=== PATIENT | female | born 1995 | race Caucasian/White ===

== ENCOUNTER 2018-12-26 19:34 | Emergency (ER) | payer BC ==
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
[2018-12-26 20:20] LABS: CHLORIDE,CL 105 mmol/L (98-107); SODIUM,NA 140 mmol/L (136-145)
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
== END 2018-12-26 21:17 | disposition home or self-care (01) ==
LOC: MW.ED 19:34
DX: M62.830 Muscle spasm of back (principal); V49.9XXA Car occupant (driver) (passenger) injured in unspecified traffic accident, initial encounter
CPT/HCPCS: 36415; 70450; 70450-26; 71045; 71045-26; 72125; 72125-26; 80048; 81003; 81025; 85025; 99284; 99284-25

== ENCOUNTER 2021-05-06 06:23 | Inpatient (IN) | payer MEDICAID ==
[2021-05-06] MEDS ORDERED: Sodium Chloride 0.9% 10 ML SDV IV PRN (07:36)
[2021-05-06] MEDS ORDERED: Carboprost Tromethamine 250 MCG/1 ML Amp IM PRN (07:36)
[2021-05-06] MEDS ORDERED: Lidocaine 1% 50 ML MDV INJECT PRN (07:36)
[2021-05-06] MEDS ORDERED: Methylergonovine 0.2 MG/1 ML Amp IM PRN (07:36)
[2021-05-06] MEDS ORDERED: Water For Irrigation,Sterile 1,000 ML Container IRR PRN (07:36)
[2021-05-06] MEDS ORDERED: Tranexamic Acid 1,000 MG in Sodium Chloride 0.9% 100 ML IV PRN (07:36)
[2021-05-06] MEDS ORDERED: Sodium Chloride 0.9% 10 ML Syringe FLUSH PRN (07:36)
[2021-05-06] MEDS ORDERED: Nalbuphine 10 MG/1 ML Vial IVPUSH PRN (07:36)
[2021-05-06] MEDS ORDERED: Sodium Chloride 0.9% 2.5 ML Syringe FLUSH PRN (07:36)
[2021-05-06] MEDS ORDERED: Ondansetron 4 MG/2 ML SDV IVPUSH PRN (07:36)
[2021-05-06] MEDS ORDERED: Misoprostol 200 MCG Tab PO PRN (07:36)
[2021-05-06] MEDS ORDERED: Terbutaline 1 MG/ML SDV SUBCUT PRN (07:44)
[2021-05-06] MEDS ORDERED: Misoprostol 25 MCG (1/4 of 100 MCG) Tab VAG PRN ×2 (07:44→12:00)
[2021-05-06] MEDS ORDERED: Oxytocin/0.9 % Sodium Chloride 30 UNIT/500 ML BAG IV SCH ×2 (07:45)
[2021-05-06] MEDS: Misoprostol 25 MCG (1/4 of 100 MCG) Tab PO SCH ×2 (08:09→14:54)
[2021-05-06] MEDS: Lactated Ringers 1,000 ML IV SCH ×2 (12:34→13:43)
[2021-05-06] MEDS ORDERED: Ropivacaine HCl/PF 200 ML ONE (13:16)
[2021-05-06] MEDS ORDERED: Bupivacaine 0.25% 10 ML SDV ONE (13:17)
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
--- NOTE | 2021-05-06 22:26 | PCM.LDHP ---
L&D History of Present Illness - General Date of Service: 05/06/21 (LATE ENTRY) Admit Problem/Dx: Patient Status Order with Admit Dx/Problem 05/06/21 06:20 Patient Status [ADT] Routine Admission Diagnosis/Problem Admission Diagnosis/Problem Source of Information: Patient History Limitations: Reports: No Limitations - History of Present Illness Introduction:: 25yo at 39w [place] admitted for IOL. uncomplicated. She is A+, abs screen neg, RI, HepBsAg neg, HIV neg, RPR NR, GC/Chlam neg, GBS n eg. 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: Hematologic History: Reports: Anesthesia Reaction Other Hematologic History: 2016 possible reaction to epidural.Hives, chills, and fever of 104F - Past Surgical History Female Surgical History: Reports: Other (See Below) Other Female Surgeries/Procedures: Laparoscopic of ovarian cyst Jun 2010 Social & Family History - Family History Family Medical History: No Pertinent Family History OBGYN: Reports: - Tobacco Use Tobacco Use Status *Q: Never Tobacco User Second Hand Smoke Exposure: No - Caffeine Use Caffeine Use: Reports: Coffee Other Caffeine Use: 1-2 cups of coffee a day - Recreational Drug Use Recreational Drug Use: No H&P Review of Systems - Review of Systems: Review Of Systems: See Below General: Reports: No Symptoms HEENT: Reports: No Symptoms Pulmonary: Reports: No Symptoms Cardiovascular: Reports: No Symptoms Gastrointestinal: Reports: No Symptoms Genitourinary: Reports: No Symptoms Musculoskeletal: Reports: No Symptoms Skin: Reports: No Symptoms Psychiatric: Reports: No Symptoms Neurological: Reports: No Symptoms Hematologic/Lymphatic: Reports: No Symptoms Immunologic: Reports: No Symptoms L&D Exam - Exam Exam: See Below - Vital Signs Weight: 78.018 kg - OB Specific Contraction Intensity: Mild Movement: Active Heart Tones: Present Presentation: Vertex Estimated Weight: 7.5lbs - Retana Score Retana Score Cervix Position: Midposition Retana Score Consistency: Medium Retana Score Effacement: 0-30% Retana Score Dilation: 1-2 cm Retana Score Infant's Station: -3 Retana Score Total: 3 - Exam General: Alert, Oriented Lungs: Normal Respiratory Effort Cardiovascular: Regular Rate Back Exam: Normal Inspection Extremities: Normal Inspection - Patient Data Lab Results Last 24 hrs: Laboratory Results - last 24 hr 05/06/21 05/06/21 Range/Units 07:05 07:05 WBC 11.23 H (4.0-11.0) K/uL RBC 3.94 L (4.30-5.90) M/uL Hgb 11.5 L (12.0-16.0) g/dL Hct 34.7 L (36.0-46.0) % MCV 88.1 (80.0-98.0) fL MCH 29.2 (27.0-32.0) pg MCHC 33.1 (31.0-37.0) g/dL RDW Std Deviation 44.6 (28.0-62.0) fl RDW Coeff of Avni 14 (11.0-15.0) % Plt Count 186 (150-400) K/uL MPV 12.30 H (7.40-12.00) fL Nucleated RBC % 0.0 /100WBC Nucleated RBCs # 0 K/uL Blood Type A POSITIVE Antibody Screen NEGATIVE Result Diagrams: 05/07/21 05:43 - Problem List (1) Encounter for induction of labor SNOMED Code(s): 884798358 ICD Code: Z34.90 - ENCNTR FOR SUPRVSN OF NORMAL , UNSP, UNSP TRIMESTER Status: Acute Current Visit: Yes (2) Term SNOMED Code(s): 42922726 ICD Code: Z34.90 - ENCNTR FOR SUPRVSN OF NORMAL , UNSP, UNSP TRIMESTER Status: Acute Current Visit: Yes Problem List Initiated/Reviewed/Updated: Yes Orders Last 24hrs: Active Orders 24 hr Category Date Time Status Patient Status [ADT] Routine ADT 05/06/21 06:20 Active Bedrest Bathroom Privileges [RC] ASDIRECTED Care 05/06/21 07:44 Active Communication Order [RC] ASDIRECTED Care 05/06/21 07:44 Active Communication Order [RC] ASDIRECTED Care 05/06/21 07:44 Active Communication Order [RC] ASDIRECTED Care 05/06/21 07:44 Active Heart Tones [RC] CONTINUOUS Care 05/06/21 07:36 Active May Shower [RC] ASDIRECTED Care 05/06/21 07:36 Active Notify Provider [RC] PRN Care 05/06/21 07:36 Active Notify Provider [RC] PRN Care 05/06/21 07:44 Active Notify Provider [RC] PRN Care 05/06/21 07:44 Active Notify Provider [RC] STAT Care 05/06/21 07:44 Active Oxygen Therapy [RC] ASDIRECTED Care 05/06/21 07:44 Active Up ad Trina [RC] ASDIRECTED Care 05/06/21 07:36 Active Vaginal Exam [RC] PRN Care 05/06/21 07:36 Active Vaginal Exam [RC] PRN Care 05/06/21 07:44 Active Vital Signs [RC] PER UNIT ROUTINE Care 05/06/21 07:36 Active Vital Signs [RC] PER UNIT ROUTINE Care 05/06/21 07:44 Active Regular Diet [DIET] Diet 05/06/21 Breakfast Active RPR (SYPHILIS SERO) W/ RFLX [REF] Routine Lab 05/06/21 07:05 Received Carboprost Tromethamine [Hemabate DS] Med 05/06/21 07:36 Active 250 mcg IM ASDIRECTED PRN Lactated Ringers [Ringers, Lactated] 1,000 ml Med 05/06/21 07:45 Active IV ASDIRECTED Lidocaine 1% [Xylocaine 1%] Med 05/06/21 07:36 Active 50 ml INJECT ONETIME PRN Methylergonovine [Methergine] Med 05/06/21 07:36 Active 0.2 mg IM ASDIRECTED PRN Nalbuphine [Nubain] Med 05/06/21 07:36 Active 10 mg IVPUSH Q1H PRN Ondansetron [Zofran] Med 05/06/21 07:36 Active 4 mg IVPUSH Q6H PRN Oxytocin/0.9 % Sodium Chloride [Oxytocin 30 Unit/500 ML Med 05/06/21 07:45 Active -NS] 30 unit in 500 ml IV TITRATE Oxytocin/0.9 % Sodium Chloride [Oxytocin 30 Unit/500 ML Med 05/06/21 07:45 Active -NS] 30 unit in 500 ml IV TITRATE Sodium Chloride 0.9% [Normal Saline] Med 05/06/21 07:36 Active 10 ml IV ASDIRECTED PRN Sodium Chloride 0.9% [Saline Flush] Med 05/06/21 07:36 Active 10 ml FLUSH ASDIRECTED PRN Sodium Chloride 0.9% [Saline Flush] Med 05/06/21 07:36 Active 2.5 ml FLUSH ASDIRECTED PRN Terbutaline [Brethine] Med 05/06/21 07:44 Active 0.25 mg SUBCUT ASDIRECTED PRN Tranexamic Acid [Cyklokapron] 1,000 mg Med 05/06/21 07:36 Active Sodium Chloride 0.9% [Normal Saline] 100 ml IV ONETIME Water For Irrigation,Sterile [Sterile Water for Med 05/06/21 07:36 Active Irrigation] 1,000 ml IRR ASDIRECTED PRN miSOPROStoL [Cytotec] Med 05/06/21 07:36 Active 200 mcg PO ONETIME PRN miSOPROStoL [Cytotec] Med 05/06/21 08:00 Active 25 mcg PO Q4H miSOPROStoL [Cytotec] Med 05/06/21 07:44 Active 25 mcg VAG ONETIME PRN miSOPROStoL [Cytotec] Med 05/06/21 12:00 Active 25 mcg VAG Q4H PRN Scalp Electrode [WOMSER] Per Unit Routine Oth 05/06/21 07:36 Ordered Medication Administration Instruction [OM.PC] Q3H Oth 05/06/21 07:45 Ordered Peripheral IV Insertion Adult [OM.PC] Routine Oth 05/06/21 07:36 Ordered Resuscitation Status Routine Resus Stat 05/06/21 07:36 Ordered Medication Orders Carboprost Tromethamine (Carboprost Tromethamine 250 Mcg/1 Ml Amp) 250 mcg IM ASDIRECTED PRN PRN Reason: Post Hemorrhage Oxytocin/Sodium Chloride (Oxytocin 30 Unit/500 Ml-Ns) 30 unit in 500 mls @ 999 mls/hr IV TITRATE NATHAN Tranexamic Acid 1,000 mg/ (Sodium Chloride) 110 mls @ 660 mls/hr IV ONETIME PRN PRN Reason: Bleeding Lactated Ringer's (Ringers, Lactated) 1,000 mls @ 150 mls/hr IV ASDIRECTED [facility] Last Admin: 05/06/21 13:43 Dose: 999 mls/hr Documented by: Infusion: 05/06/21 13:35 Dose: 999 mls/hr Documented by: Admin: 05/06/21 12:34 Dose: 999 mls/hr Documented by: KAROL Oxytocin/Sodium Chloride (Oxytocin 30 Unit/500 Ml-Ns) 30 unit in 500 mls @ 2 mls/hr IV TITRATE NATHAN; Protocol Last Titration: 05/06/21 20:00 Dose: 6 munits/min, 6 mls/hr Documented by: Titration: 05/06/21 17:10 Dose: 4 munits/min, 4 mls/hr Documented by: Admin: 05/06/21 15:02 Dose: 2 munits/min, 2 mls/hr Documented by: KAROL Lidocaine HCl (Lidocaine 1% 50 Ml Mdv) 50 ml INJECT ONETIME PRN PRN Reason: Laceration repair Methylergonovine Maleate (Methylergonovine 0.2 Mg/1 Ml Amp) 0.2 mg IM ASDIRECT ED PRN PRN Reason: Post Hemorrhage Misoprostol (Misoprostol 200 Mcg Tab) 200 mcg PO ONETIME PRN PRN Reason: Post Hemorrhage Misoprostol (Misoprostol 25 Mcg (1/4 Of 100 Mcg) Tab) 25 mcg VAG ONETIME PRN PRN Reason: Cervical Ripening Last Admin: 05/06/21 08:09 Dose: 25 mcg Documented by: KAROL Misoprostol (Misoprostol 25 Mcg (1/4 Of 100 Mcg) Tab) 25 mcg VAG Q4H PRN PRN Reason: Cervical Ripening Misoprostol (Misoprostol 25 Mcg (1/4 Of 100 Mcg) Tab) 25 mcg PO Q4H [facility] Last Admin: 05/06/21 14:54 Dose: Not Given Documented by: Admin: 05/06/21 08:09 Dose: 25 mcg Documented by: KAROL Nalbuphine HCl (Nalbuphine 10 Mg/1 Ml Vial) 10 mg IVPUSH Q1H PRN PRN Reason: Pain (severe 7-10) Ondansetron HCl (Ondansetron 4 Mg/2 Ml Sdv) 4 mg IVPUSH Q6H PRN PRN Reason: Nausea/Vomiting Last Admin: 05/06/21 19:41 Dose: 4 mg Documented by: SUNDAR Sodium Chloride (Sodium Chloride 0.9% 10 Ml Syringe) 10 ml FLUSH ASDIRECTED PRN PRN Reason: Keep Vein Open Sodium Chloride (Sodium Chloride 0.9% 2.5 Ml Syringe) 2.5 ml FLUSH ASDIRECTED PRN PRN Reason: Keep Vein Open Sodium Chloride (Sodium Chloride 0.9% 10 Ml Sdv) 10 ml IV ASDIRECTED PRN PRN Reason: IV Use Sterile Water (Water For Irrigation,Sterile 1,000 Ml Container) 1,000 ml IRR ASDIRECTED PRN PRN Reason: delivery Terbutaline Sulfate (Terbutaline 1 Mg/Ml Sdv) 0.25 mg SUBCUT ASDIRECTED PRN PRN Reason: Tacysystole Assessment/Plan Comment:: 25yo at 39w admitted for elective IOL. Reactive strip. Retana score of 3. Discussed IOL procedure, including off label use of cytotec for cervical ripening. Patient express understanding and agreeable to the plan. Will start cervical ripening using cytotec, then pitocin PRN. Epidural PRN.
[2021-05-06] MEDS ORDERED: Lanolin 100% Cream 7 GM Tube TOP PRN (22:36)
[2021-05-06] MEDS ORDERED: Witch Hazel Medicated Pads 40/Jar TOP PRN (22:36)
[2021-05-06] MEDS ORDERED: Acetaminophen 500 MG Tab PO PRN ×2 (22:36)
[2021-05-06] MEDS ORDERED: Ibuprofen 400 MG Tab PO PRN (22:36)
[2021-05-06] MEDS ORDERED: Bisacodyl 10 MG Supp RECTAL PRN (22:36)
[2021-05-06] MEDS ORDERED: Docusate Sodium 100 MG Cap PO PRN (22:36)
[2021-05-06] MEDS ORDERED: Benzocaine/Menthol 20%-0.5% Spray 78 GM Cannister TOP PRN (22:36)
--- NOTE | 2021-05-06 22:36 | PCM.DEL ---
L & D Note - General Info Date of Service: 05/06/21 Mother's Due Date: 05/13/21 - Delivery Note Labor: Augmented by Oxytocin Cervical Ripening Method: Misoprostil Delivery Outcome: Livebirth Delivery Method: Spontaneous Vaginal Delivery-Single Presentation: Vertex Nuchal Cord: None Anesthesia Type: Epidural Episiotomy Type: None Laceration: None Placenta: Intact, Spontaneous Cord: 3 Vessels Estimated Blood Loss: 350 Resuscitation Needed: No : Stimulated, Warmed Score 1 min: 8 Score 5 min: 9 Delivery Comments (Free Text/Narrative):: 25yo G4 now P3013 s/p at 39w after uncomplicated elective IOL. care complicated uncomplicated. Normal spontaneous vaginal delivery, of live male infant, over an intact perineum with epidural anesthesia. No meconium or nuchal cord present. Spontaneous delivery of placenta with 3-vessel cord. No lacerations noted. All sponges and instrument counts correct. Delivery details: Male Weight: 8'3" : 8/9 EBL 350cc Of note, provider was called by the nurse to inform provider that patient was at 5cm dilation, and 1 station. Provider communicated she will come in 20mns to perform AROM. However, 10mns after, the nurse called back stated patient delivered, while she was checking her. Upon arrival 5mns later, provider noted baby was delivered, cord was cut, and baby was being assessed by the nursing staff. Patient was on her bed, some blood on the bed and floor, but no active bleeding. Provider took over the care and delivered placenta. - General Info Date of Service: 05/06/21 Admission Dx/Problem (Free Text): Patient Status Order with Admit Dx/Problem 05/06/21 06:20 Patient Status [ADT] Routine Admission Diagnosis/Problem Admission Diagnosis/Problem Functional Status: Reports: Pain Controlled - Review of Systems General: Reports: No Symptoms HEENT: Reports: No Symptoms, Rhinitis Pulmonary: Reports: No Symptoms Cardiovascular: Reports: No Symptoms Gastrointestinal: Reports: No Symptoms Genitourinary: Reports: No Symptoms Musculoskeletal: Reports: No Symptoms Skin: Reports: No Symptoms Neurological: Reports: No Symptoms Psychiatric: Reports: No Symptoms - Patient Data Weight - Most Recent: 78.018 kg Lab Results Last 24 Hours: Laboratory Results - last 24 hr 07/14/21 07/14/21 Range/Units 07:05 07:05 WBC 11.23 H (4.0-11.0) K/uL RBC 3.94 L (4.30-5.90) M/uL Hgb 11.5 L (12.0-16.0) g/dL Hct 34.7 L (36.0-46.0) % MCV 88.1 (80.0-98.0) fL MCH 29.2 (27.0-32.0) pg MCHC 33.1 (31.0-37.0) g/dL RDW Std Deviation 44.6 (28.0-62.0) fl RDW Coeff of Avni 14 (11.0-15.0) % Plt Count 186 (150-400) K/uL MPV 12.30 H (7.40-12.00) fL Nucleated RBC % 0.0 /100WBC Nucleated RBCs # 0 K/uL Blood Type A POSITIVE Antibody Screen NEGATIVE Med Orders - Current: Current Medications Carboprost Tromethamine (Carboprost Tromethamine 250 Mcg/1 Ml Amp) 250 mcg IM ASDIRECTED PRN PRN Reason: Post Hemorrhage Oxytocin/Sodium Chloride (Oxytocin 30 Unit/500 Ml-Ns) 30 unit in 500 mls @ 999 mls/hr IV TITRATE NATHAN Tranexamic Acid 1,000 mg/ (Sodium Chloride) 110 mls @ 660 mls/hr IV ONETIME PRN PRN Reason: Bleeding Lactated Ringer's (Ringers, Lactated) 1,000 mls @ 150 mls/hr IV ASDIRECTED NATHAN Last Admin: 05/06/21 13:43 Dose: 999 mls/hr Documented by: Oxytocin/Sodium Chloride (Oxytocin 30 Unit/500 Ml-Ns) 30 unit in 500 mls @ 2 mls/hr IV TITRATE NATHAN; Protocol Last Titration: 05/06/21 20:00 Dose: 6 munits/min, 6 mls/hr Documented by: Lidocaine HCl (Lidocaine 1% 50 Ml Mdv) 50 ml INJECT ONETIME PRN PRN Reason: Laceration repair Methylergonovine Maleate (Methylergonovine 0.2 Mg/1 Ml Amp) 0.2 mg IM ASDIRECTED PRN PRN Reason: Post Hemorrhage Misoprostol (Misoprostol 200 Mcg Tab) 200 mcg PO ONETIME PRN PRN Reason: Post Hemorrhage Misoprostol (Misoprostol 25 Mcg (1/4 Of 100 Mcg) Tab) 25 mcg VAG ONETIME PRN PRN Reason: Cervical Ripening Last Admin: 05/06/21 08:09 Dose: 25 mcg Documented by: Misoprostol (Misoprostol 25 Mcg (1/4 Of 100 Mcg) Tab) 25 mcg VAG Q4H PRN PRN Reason: Cervical Ripening Misoprostol (Misoprostol 25 Mcg (1/4 Of 100 Mcg) Tab) 25 mcg PO Q4H NATHAN Last Admin: 05/06/21 14:54 Dose: Not Given Documented by: Nalbuphine HCl (Nalbuphine 10 Mg/1 Ml Vial) 10 mg IVPUSH Q1H PRN PRN Reason: Pain (severe 7-10) Ondansetron HCl (Ondansetron 4 Mg/2 Ml Sdv) 4 mg IVPUSH Q6H PRN PRN Reason: Nausea/Vomiting Last Admin: 05/06/21 19:41 Dose: 4 mg Documented by: Sodium Chloride (Sodium Chloride 0.9% 10 Ml Syringe) 10 ml FLUSH ASDIRECTED PRN PRN Reason: Keep Vein Open Sodium Chloride (Sodium Chloride 0.9% 2.5 Ml Syringe) 2.5 ml FLUSH ASDIRECTED PRN PRN Reason: Keep Vein Open Sodium Chloride (Sodium Chloride 0.9% 10 Ml Sdv) 10 ml IV ASDIRECTED PRN PRN Reason: IV Use Sterile Water (Water For Irrigation,Sterile 1,000 Ml Container) 1,000 ml IRR ASDIRECTED PRN PRN Reason: delivery Terbutaline Sulfate (Terbutaline 1 Mg/Ml Sdv) 0.25 mg SUBCUT ASDIRECTED PRN PRN Reason: Tacysystole Discontinued Medications Bupivacaine HCl (Bupivacaine 0.25% 10 Ml Sdv) Confirm Administered Dose 10 ml .ROUTE .STK-MED ONE Stop: 05/06/21 13:18 Ropivacaine (Naropin 0.2%) Confirm Administered Dose 200 mls @ as directed .ROUTE .STK-MED ONE Stop: 05/06/21 13:17 - Exam Urinary Catheter Total Time: 0Days 0Hours General: Alert, Oriented Lungs: Normal Respiratory Effort Cardiovascular: Regular Rate GI/Abdominal Exam: Soft, Non-Tender (Female) Exam: Normal External Exam Extremities: Normal Inspection Psy/Mental Status: Alert, Normal Affect - Problem List & Annotations (1) Encounter for induction of labor SNOMED Code(s): 369670461 Code(s): Z34.90 - ENCNTR FOR SUPRVSN OF NORMAL , UNSP, UNSP TRIMESTER Status: Acute Current Visit: Yes (2) Term delivered SNOMED Code(s): 94419409, 079503694 Code(s): O80 - ENCOUNTER FOR FULL-TERM UNCOMPLICATED DELIVERY Status: Acute Current Visit: Yes - Problem List Review Problem List Initiated/Reviewed/Updated: Yes - Plan Plan:: 25yo G4 now P3013 s/p at 39w after uncomplicated elective IOL. Mom and baby are doing well. Routine care.
[2021-05-07] MEDS: Ibuprofen 800 MG Tab PO PRN ×2 (01:24→08:20)
--- NOTE | 2021-05-07 09:03 | PCM.PNPP ---
- General Info Date of Service: 05/07/21 Admission Dx/Problem (Free Text): Patient Status Order with Admit Dx/Problem 05/06/21 06:20 Patient Status [ADT] Routine Admission Diagnosis/Problem Admission Diagnosis/Problem Functional Status: Reports: Pain Controlled, Tolerating Diet, Ambulating, Urinating - Review of Systems General: Reports: No Symptoms HEENT: Reports: No Symptoms Pulmonary: Reports: No Symptoms Cardiovascular: Reports: No Symptoms Gastrointestinal: Reports: No Symptoms Genitourinary: Reports: No Symptoms Musculoskeletal: Reports: No Symptoms Skin: Reports: No Symptoms Neurological: Reports: No Symptoms Psychiatric: Reports: No Symptoms - Patient Data Vital Signs - Most Recent: Last Vital Signs Temp 97.4 F 05/07/21 08:00 Pulse 62 05/07/21 08:00 Resp 18 05/07/21 08:00 BP 100/50 L 05/07/21 08:00 Pulse Ox 97 05/07/21 08:00 Weight - Most Recent: 172 lb Lab Results - Last 24 Hours: Laboratory Results - last 24 hr 05/07/21 Range/Units 05:43 Hgb 10.2 L (12.0-16.0) g/dL Hct 31.6 L (36.0-46.0) % Med Orders - Current: Current Medications Acetaminophen (Acetaminophen 500 Mg Tab) 500 mg PO Q4H PRN PRN Reason: Pain (mild 1-3) Acetaminophen (Acetaminophen 500 Mg Tab) 1,000 mg PO Q4H PRN PRN Reason: Pain (mild 1-3) Benzocaine/Menthol (Benzocaine/Menthol 20%-0.5% [place] 78 Gm Cannister) 78 gm TOP ASDIRECTED PRN PRN Reason: Perineal Comfort Measure Bisacodyl (Bisacodyl 10 Mg Supp) 10 mg RECTAL ONETIME PRN PRN Reason: Constipation Carboprost Tromethamine (Carboprost Tromethamine 250 Mcg/1 Ml Amp) 250 mcg IM ASDIRECTED PRN PRN Reason: Post Hemorrhage Docusate Sodium (Docusate Sodium 100 Mg Cap) 100 mg PO Q12H PRN PRN Reason: Constipation Emollient Ointment (Lanolin 100% Cream 7 Gm Tube) 0 gm TOP ASDIRECTED PRN PRN Reason: Sore Nipples Oxytocin/Sodium Chloride (Oxytocin 30 Unit/500 Ml-Ns) 30 unit in 500 mls @ 999 mls/hr IV TITRATE NATHAN Tranexamic Acid 1,000 mg/ (Sodium Chloride) 110 mls @ 660 mls/hr IV ONETIME PRN PRN Reason: Bleeding Lactated Ringer's (Ringers, Lactated) 1,000 mls @ 150 mls/hr IV ASDIRECTED NATHAN Last Admin: 05/06/21 13:43 Dose: 999 mls/hr Documented by: Oxytocin/Sodium Chloride (Oxytocin 30 Unit/500 Ml-Ns) 30 unit in 500 mls @ 2 mls/hr IV TITRATE NATHAN; Protocol Last Titration: 05/06/21 21:58 Dose: 500 munits/min, 500 mls/hr Documented by: Ibuprofen (Ibuprofen 400 Mg Tab) 400 mg PO Q4H PRN PRN Reason: Pain (mild 1-3) Ibuprofen (Ibuprofen 800 Mg Tab) 800 mg PO Q6H PRN PRN Reason: Pain (mild 1-3) Last Admin: 05/07/21 08:20 Dose: 800 mg Documented by: Lidocaine HCl (Lidocaine 1% 50 Ml Mdv) 50 ml INJECT ONETIME PRN PRN Reason: Laceration repair Methylergonovine Maleate (Methylergonovine 0.2 Mg/1 Ml Amp) 0.2 mg IM ASDIRECTED PRN PRN Reason: Post Hemorrhage Misoprostol (Misoprostol 200 Mcg Tab) 200 mcg PO ONETIME PRN PRN Reason: Post Hemorrhage Misoprostol (Misoprostol 25 Mcg (1/4 Of 100 Mcg) Tab) 25 mcg VAG ONETIME PRN PRN Reason: Cervical Ripening Last Admin: 05/06/21 08:09 Dose: 25 mcg Documented by: Misoprostol (Misoprostol 25 Mcg (1/4 Of 100 Mcg) Tab) 25 mcg VAG Q4H PRN PRN Reason: Cervical Ripening Misoprostol (Misoprostol 25 Mcg (1/4 Of 100 Mcg) Tab) 25 mcg PO Q4H NATHAN Last Admin: 05/06/21 14:54 Dose: Not Given Documented by: Nalbuphine HCl (Nalbuphine 10 Mg/1 Ml Vial) 10 mg IVPUSH Q1H PRN PRN Reason: Pain (severe 7-10) Ondansetron HCl (Ondansetron 4 Mg/2 Ml Sdv) 4 mg IVPUSH Q6H PRN PRN Reason: Nausea/Vomiting Last Admin: 05/06/21 19:41 Dose: 4 mg Documented by: Sodium Chloride (Sodium Chloride 0.9% 10 Ml Syringe) 10 ml FLUSH ASDIRECTED PRN PRN Reason: Keep Vein Open Sodium Chloride (Sodium Chloride 0.9% 2.5 Ml Syringe) 2.5 ml FLUSH ASDIRECTED PRN PRN Reason: Keep Vein Open Sodium Chloride (Sodium Chloride 0.9% 10 Ml Sdv) 10 ml IV ASDIRECTED PRN PRN Reason: IV Use Sterile Water (Water For Irrigation,Sterile 1,000 Ml Container) 1,000 ml IRR ASDIRECTED PRN PRN Reason: delivery Terbutaline Sulfate (Terbutaline 1 Mg/Ml Sdv) 0.25 mg SUBCUT ASDIRECTED PRN PRN Reason: Tacysystole Witch Jennifer (Witch Jennifer Medicated Pads 40/Jar) 1 pad TOP ASDIRECTED PRN PRN Reason: comfort care Discontinued Medications Bupivacaine HCl (Bupivacaine 0.25% 10 Ml Sdv) Confirm Administered Dose 10 ml .ROUTE .STK-MED ONE Stop: 05/06/21 13:18 Ropivacaine (Naropin 0.2%) Confirm Administered Dose 200 mls @ as directed .ROUTE .[facility] ONE Stop: 05/06/21 13:17 - Infant Interaction Infant Disposition, : [place] in Room with Family Interaction: Holding Infant Feeding: Attempted ; Nursed Fair/Poor Support Person: - Recovery Exam Fundal Tone: Firm Fundal Level: At Umbilicus Fundal Placement: Midline Lochia Amount: Small Lochia Color: Rubra/Red Perineum Description: Intact, Minimal Bruising/Swelling, Other (see below) Other Perinuem Description: skid jj Episiotomy/Laceration: None Bladder Status: Voiding - Exam General: Alert, Oriented, Cooperative, No Acute Distress Lungs: Normal Respiratory Effort GI/Abdominal Exam: Soft, Non-Tender Extremities: Normal Inspection, Normal Range of Motion, Non-Tender, Normal Capillary Refill Skin: Warm, Dry, Intact Neurological: No New Focal Deficit, Normal Speech, Normal Tone, Sensation Intact Psy/Mental Status: Alert, Normal Affect, Normal Mood - Problem List & Annotations (1) (spontaneous vaginal delivery) SNOMED Code(s): 071475363 Code(s): O80 - ENCOUNTER FOR FULL-TERM UNCOMPLICATED DELIVERY Status: Acute Priority: High Current Visit: Yes - Problem List Review Problem List Initiated/Reviewed/Updated: Yes - Plan Plan:: PP Day1 A: Ambulating, voiding, and tolerating diet. Attempted ; fed fair. Bonding well with baby. NO concerns/questions at this time. P: Continue routine plan of care.
--- NOTE | 2021-05-07 09:28 | PCM.POSTAN ---
POST ANESTHESIA ASSESSMENT - MENTAL STATUS Mental Status: Alert, Oriented - VITAL SIGNS Vital Signs: Last Vital Signs Temp 97.4 F 05/07/21 08:00 Pulse 62 05/07/21 08:00 Resp 18 05/07/21 08:00 BP 100/50 L 05/07/21 08:00 Pulse Ox 97 05/07/21 08:00 - RESPIRATORY Respiratory Status: Respiratory Rate WNL, Airway Patent, O2 Saturation Stable - CARDIOVASCULAR CV Status: Pulse Rate WNL, Blood Pressure Stable - GASTROINTESTINAL GI Status: No Symptoms - POST OP HYDRATION Hydration Status: Adequate & Stable
--- NOTE | 2021-05-07 09:29 | PCM48HPAN ---
Post Anesthesia Note - EVALUATION WITHIN 48HRS OF ANESTHETIC Vital Signs in Normal Range: Yes Patient Participated in Evaluation: Yes Respiratory Function Stable: Yes Airway Patent: Yes Cardiovascular Function Stable: Yes Hydration Status Stable: Yes Pain Control Satisfactory: Yes Nausea and Vomiting Control Satisfactory: Yes Mental Status Recovered: Yes Vital Signs: Last Vital Signs Temp 97.4 F 05/07/21 08:00 Pulse 62 05/07/21 08:00 Resp 18 05/07/21 08:00 BP 100/50 L 05/07/21 08:00 Pulse Ox 97 05/07/21 08:00
== END 2021-05-07 23:40 | disposition home or self-care (01) | DRG 807 ==
LOC: MW.OBCHECK 06:23 → MW.OB 06:23 → MW.OBCHECK 06:24 → MW.OB 06:25 → OBSVTOIN 21:54 → MW.OB 05-07 01:22
PROVIDERS: ADMIT Obstetrics & Gynecology; ATTEND Obstetrics & Gynecology
PROC: 10E0XZZ Delivery of Products of Conception, External Approach (ICD-10-PCS; principal; 2021-05-06)
PROC: 10907ZC Drainage of Amniotic Fluid, Therapeutic from Products of Conception, Via Natural or Artificial Opening (ICD-10-PCS; 2021-05-06)
PROC: 3E0P7VZ Introduction of Hormone into Female Reproductive, Via Natural or Artificial Opening (ICD-10-PCS; 2021-05-06)
PROC: 3E0R3BZ Introduction of Anesthetic Agent into Spinal Canal, Percutaneous Approach (ICD-10-PCS; 2021-05-06)
DX: O80 Encounter for full-term uncomplicated delivery (principal); Z37.0 Single live birth; Z3A.39 39 weeks gestation of pregnancy; Z88.8 Allergy status to other drugs, medicaments and biological substances
CPT/HCPCS: 01967; 36415; 51702; 59025; 59409; 85014; 85018; 85027; 86592; 86850; 86900; 86901; A9270-GY; J2405; J2590; J2795; J3490; J7120